=== PATIENT | female | born 1990 | race Caucasian/White ===

== ENCOUNTER 2017-02-06 09:09 | Emergency (ER) | payer BC ==
[~2017-02-06] VITALS: Ht 165.1 cm; Wt 143.2 kg
[2017-02-06 09:16] VITALS: BP 188/98
[2017-02-06] MEDS ORDERED: DIPH,PERTUSS(ACELL),TET VAC/PF 0.5 ML IM-VACC ONE ×2 (09:30→09:39)
[2017-02-06] MEDS ORDERED: LIDOCAINE 1%, 20ML SQ ONE (09:30)
[2017-02-06] MEDS ORDERED: LIDOCAINE 1%, 20ML ONE (09:39)
[2017-02-06] MEDS ORDERED: BACITRACIN ZINC OINT 500U/GM, 0.9 GM ONE (10:17)
== END 2017-02-06 10:16 | disposition home or self-care (01) ==
LOC: ED 09:40
DX: S61.411A Laceration without foreign body of right hand, initial encounter (principal); W26.0XXA Contact with knife, initial encounter; Y93.89 Activity, other specified; Y92.098 Other place in other non-institutional residence as the place of occurrence of the external cause; Y99.8 Other external cause status
CPT/HCPCS: 12041; 90471; 90715; 99284; J3490